=== PATIENT | male | born 1965 | race Caucasian/White ===

== ENCOUNTER 2016-06-04 11:12 | Outpatient (CLI) | payer OTHER ==
[2016-06-04 12:14] LABS: Hemoglobin A1c 6.3 % (4.0-6.0)
== END 2016-06-04 11:13 ==
LOC: HPCALD 11:12
PROVIDERS: ATTEND Family Medicine
DX: E11.9 Type 2 diabetes mellitus without complications (principal)
CPT/HCPCS: 36415; 83036

== ENCOUNTER 2016-10-25 10:41 | Emergency (ER) | payer OTHER ==
[2016-10-25 11:10] LABS: #Basophils 0.1 thou/uL (0.0-0.2); #Eosinphils 0.2 thou/uL (0.0-0.7); #Lymphocytes 1.7 thou/uL (1.20-3.40); #Monocytes 0.5 thou/uL (0.11-0.59); #Neutrophils 5.3 thou/uL (1.40-6.50); %Eosinophils 2.7 % (0.0-10.0); %Lymphocytes 21.3 % (21.0-51.0); %Monocytes 6.8 % (0.0-10.0); %Neutrophils 68.2 % (42.0-75.0); Mean Corpuscular Hemoglobin 30.1 pg (27.0-31.0); Mean Corpuscular Volume 88.4 fl (80.0-94.0); Mean Platelet Volume 9.5 fL (7.4-10.4); Platelet Count 185 thou/uL (130-400); Red Blood Cell (RBC) Count 5.65 mill/uL (4.70-6.10); White Blood Cell (WBC) Count 7.7 thou/uL (4.8-10.8)
[2016-10-25 11:26] LABS: ALT (SGPT) 54 U/L (8-55); AST (SGOT) 27 U/L (5-34); Albumin 4.6 g/dL (3.5-5.0); Alkaline Phosphatase 44 U/L (40-150); Anion Gap 13 mmol/L (10-20); BUN (Urea Nitrogen) 25 mg/dL (8.9-20.6); Bilirubin, Total 0.3 mg/dL (0.2-1.2); Calc. Creatinine Clearance 0 mL/min (70-130); Calcium 9.9 mg/dL (7.8-10.44); Carbon Dioxide 25 mmol/L (22-29); Chloride 107 mmol/L (98-107); Estimated GFR-MDRD 81; Glucose 203 mg/dL (70-105); Potassium 4.5 mmol/L (3.5-5.1); Protein, Total 7.6 g/dL (6.0-8.3); Sodium 140 mmol/L (136-145)
[2016-10-25 11:28] LABS: Troponin I Less than 0.010 ng/mL (< 0.028)
== END 2016-10-25 11:42 | disposition home or self-care (01) ==
LOC: BURERS 10:41
DX: R55 Syncope and collapse (principal); E11.9 Type 2 diabetes mellitus without complications; F17.220 Nicotine dependence, chewing tobacco, uncomplicated
CPT/HCPCS: 36416; 80053; 82553; 84484; 85025; 93005

== ENCOUNTER 2016-12-06 08:57 | Outpatient (CLI) | payer OTHER ==
[2016-12-06 10:06] LABS: #Basophils 0.1 thou/uL (0.0-0.2); #Eosinphils 0.3 thou/uL (0.0-0.7); #Lymphocytes 1.9 thou/uL (1.20-3.40); #Monocytes 0.5 thou/uL (0.11-0.59); #Neutrophils 3.7 thou/uL (1.40-6.50); %Basophils 0.8 % (0.0-1.0); %Eosinophils 3.9 % (0.0-10.0); %Lymphocytes 29.4 % (21.0-51.0); %Monocytes 7.8 % (0.0-10.0); Hemoglobin 15.5 g/dL (14.0-18.0); Mean Corpuscular HGB CONC 34.3 g/dL (32.0-36.0); Mean Corpuscular Hemoglobin 30.8 pg (27.0-31.0); Mean Corpuscular Volume 89.9 fl (80.0-94.0); Mean Platelet Volume 9.2 fL (7.4-10.4); Platelet Count 186 thou/uL (130-400); RBC Distribution Width 11.5 % (11.5-14.5); Red Blood Cell (RBC) Count 5.03 mill/uL (4.70-6.10); White Blood Cell (WBC) Count 6.4 thou/uL (4.8-10.8)
[2016-12-06 10:13] LABS: ALT (SGPT) 46 U/L (8-55); AST (SGOT) 26 U/L (5-34); Albumin 4.4 g/dL (3.5-5.0); Alkaline Phosphatase 40 U/L (40-150); Anion Gap 12 mmol/L (10-20); BUN (Urea Nitrogen) 18 mg/dL (8.9-20.6); Bilirubin, Total 0.8 mg/dL (0.2-1.2); Calc. Creatinine Clearance 0 mL/min (70-130); Calcium 9.4 mg/dL (7.8-10.44); Carbon Dioxide 24 mmol/L (22-29); Cardiac Risk 3.6 (Less than 4.5); Chloride 107 mmol/L (98-107); Cholesterol 114 mg/dl (< 200 Desired); Estimated GFR-MDRD Greater than 90; Globulin 2.3 g/dL (2.4-3.5); Glucose 125 mg/dL (70-105); HDL Cholesterol 32 mg/dL (>60 Neg Risk); LDL Cholesterol, Calculated 66 mg/dL; Potassium 4.1 mmol/L (3.5-5.1); Protein, Total 6.7 g/dL (6.0-8.3); Sodium 139 mmol/L (136-145); Triglycerides 82 mg/dL (Less than 150)
[2016-12-06 10:31] LABS: PSA-Asymptomatic (SCREENING) 0.84 ng/mL (0-4.0); Thyroid Stimulating Hormone 1.6633 uIU/mL (0.35-4.94)
[2016-12-06 10:35] LABS: Hemoglobin A1c 6.4 % (4.0-6.0)
[2016-12-06 18:33] LABS: Creatinine, Urine 149.15 mg/dL (63-166); Microalbumin/Creat Ratio 6.7 mg/g (Less than 30)
== END 2016-12-06 08:58 | disposition home or self-care (01) ==
LOC: HPCALD 08:57
PROVIDERS: ATTEND Family Medicine
DX: Z12.5 Encounter for screening for malignant neoplasm of prostate (principal); E11.9 Type 2 diabetes mellitus without complications
CPT/HCPCS: 36415; 80053; 80061; 82043; 83036; 84443; 85025; G0103

== ENCOUNTER 2020-02-22 10:56 | Outpatient (CLI) | payer BC ==
--- NOTE | 2020-02-22 18:12 | RAD ---
LEFT KNEE TWO VIEWS: Date: 02-22-2020 FINDINGS: No fracture or joint effusion was seen. Some small osteophytes are seen in the joint, including the p atellofemoral joint. IMPRESSION: Minor arthritic changes. POS: HOME
== END 2020-02-22 10:57 | disposition home or self-care (01) ==
LOC: BURRAD 10:56
PROVIDERS: ATTEND Nurse Practitioner Family
DX: M25.562 Pain in left knee (principal); M17.12 Unilateral primary osteoarthritis, left knee

== ENCOUNTER 2022-08-20 15:32 | Outpatient (CLI) | payer BC | END 2022-08-20 15:33 | disposition home or self-care (01) | LOC: BURRAD 15:32 | PROVIDERS: ATTEND Family Medicine | DX: S39.012A Strain of muscle, fascia and tendon of lower back, initial encounter (principal); M47.816 Spondylosis without myelopathy or radiculopathy, lumbar region; M46.06 Spinal enthesopathy, lumbar region; M89.38 Hypertrophy of bone, other site | CPT/HCPCS: 72110 ==